=== PATIENT | male | born 1955 | race Caucasian/White ===

== ENCOUNTER 2024-03-03 20:20 | Emergency (ER) | payer MEDICARE, OTHER, SELFPAY ==
[2024-03-03 20:20] VITALS: BP 160/106; PULSE 88; RESP 18; TEMP 36.5; O2SAT 98; BMI 33.5
--- NOTE | 2024-03-03 20:37 | CT_ITS ---
INDICATION: LEFT SIDED ABD PAIN EXAMINATION: CT ABDOMEN AND PELVIS WITHOUT CONTRAST - CT Abdomen And Pelvis W/O Contrast Injection TECHNIQUE: Helically acquired images were obtained of the abdomen and pelvis without oral or IV contrast. A radiation dose optimization technique was used for this scan. IV Contrast dosage and agent: None. Oral contrast: None. RADIATION DOSAGE (If Supplied By Facility): CTDIvol = ( 17.98 ) mGy, DLP = ( 1309.86 ) mGycm COMPARISON: Prior study dated: 03/08/2016 FINDINGS: LOWER CHEST: There is a 0.4 cm right middle lobe pulmonary nodule in series 2 image 6. This is similar to the 2016 study, suggesting benign etiology. No specific follow-up recommended. No consolidation. No cardiomegaly or pericardial effusion. LIVER: The liver is normal in size, shape, and attenuation. No focal mass. GALLBLADDER AND BILIARY TREE: Gallbladder not seen. No intra- or extrahepatic biliary ductal dilation. PANCREAS: No focal cystic or solid mass. SPLEEN: Normal size without focal cystic or solid mass. ADRENAL GLANDS: No nodules. KIDNEYS AND URETERS: Normal size and position. Postsurgical changes along the peripheral aspect of the right kidney. There is mild left hydroureteronephrosis with perinephric and periureteral fat stranding. There is a 0.2 cm calculus in the mid ureter at the level of L5. Additional 0.4 cm left lower pole renal calculus which is 11.5 cm from the posterior axillary line. . PERITONEUM: No ascites or free air. No other fluid collection. BOWEL: The stomach is unremarkable. Normal caliber small bowel. No obstruction. No colonic wall thickening or inflammatory changes. Diffuse colonic diverticulosis, greatest at the sigmoid colon. No diverticulitis. No evidence of acute appendicitis. LYMPH NODES: No enlarged mesenteric or retroperitoneal lymph nodes. VESSELS: Aorta is non-dilated. Mild atherosclerotic calcification. URINARY BLADDER: Unremarkable. REPRODUCTIVE ORGANS: No pelvic masses. ABDOMINAL WALL: Prominent fat-containing right inguinal hernia. BONES: No acute or suspicious osseous abnormality. Degenerative change at L5-S1 with vacuum disc phenomenon. CT/Abdomen/Pelvis without Cont IMPRESSION: Mild left hydroureteronephrosis with a midureteral 0.2 cm calculus. Additional nonobstructing left lower pole renal calculus. Electronically Signed: Wes Raya MD at 21:52 EDT ,
--- NOTE | 2024-03-03 20:38 | EDS_ITS ---
HPI <SHAHEED Thakkar - Last Filed: 03/03/24 22:28> History of Present Illness Chief Complaint: Complaint Narrative Narrative: Patient is a 68-year-old male with history of diabetes, renal cell carcinoma who presents to the emergency department with left-sided abdominal pain, left-sided scrota pain. Looking at the patient's surgical note, patient did see Dr. Foy for an inguinal hernia. Patient did have surgery for a hydrocele to the right testicle however it turned out to be a more of a hernia. Patient's incision site was open, looking infected and he is now on antibiotics. Patient states today roughly around 6 PM he had severe pain to his left flank, left abdomen, it was sharp, he became diaphoretic, then it went away. He then had a second episode of this and this is why he is in the emergency department. Denies any fever or chills. PFS <SHAHEED Thakkar - Last Filed: 03/03/24 22:28> [facility] Medical History unable to obtain Home Medications ?Medication ?Instructions ?Recorded ?Last Taken ?Type aspirin 81 mg chewable tablet 81 mg PO DAILY@0800 01/22/16 Unknown History ciprofloxacin HCl 500 mg tablet 500 mg PO BID ##20 03/08/16 Unknown Rx esomeprazole magnesium 40 mg 40 mg PO QDAY 03/01/24 Unknown History capsule,delayed release gabapentin 300 mg capsule 300 mg PO TID 03/01/24 Unknown History glipizide 10 mg tablet, extended 10 mg PO QDAY 03/01/24 Unknown History release 24 hr insulin glargine 100 unit/mL (3 unit subcut 03/01/24 Unknown History mL) subcutaneous pen (Basaglar KwikPen U-100 Insulin) lisinopril 10 mg tablet 10 mg PO QDAY 03/01/24 Unknown History phentermine 37.5 mg tablet 37.5 mg PO QDAY 03/01/24 Unknown History zolpidem 10 mg tablet 10 mg PO QHS PRN 03/01/24 Unknown History azithromycin 250 mg tablet 250 mg PO DAILY #4 TABLETS 03/03/24 Unknown Rx oxycodone-acetaminophen 5 mg-325 1 tab PO Q8H PRN pain 5 days #15 03/03/24 Unknown Rx mg tablet (Percocet) tabs Allergy/AdvReac Type Severity Reaction Status Date / Time No Known Allergies Allergy Verified 03/03/24 20:26 Social History Smoking Status: Never smoker ROS <SHAHEED Thakkar - Last Filed: 03/03/24 22:28> ROS ED ROS Narrative Constitutional: Negative for fever, chills, weight loss, weakness Eyes: Negative for vision loss, vision change, double vision ENT: Negative for any sore throat, ear pain, congestion Cardiovascular: Negative for any chest pain, tightness, palpitations Respiratory: Negative for any cough, sputum production, hemoptysis, dyspnea, dyspnea on exertion, orthopnea Gastrointestinal: Negative for any vomiting, diarrhea, constipation, blood in stool, blood in vomit. Positive for left-sided abdominal pain : Negative for any urinary frequency, dysuria, retention, blood in urine. Positive for testicular, scrotal pain Muscle skeletal: Negative for any neck pain, back pain Neurological: Negative for any headache, syncope, dizziness Skin: Negative for any rashes, itching, abrasions, lacerations Psychiatric: Negative for any depression, anxiety, stress, suicidal ideation, homicidal ideation Hematologic: Negative for any excessive bruising, easy bleeding EXAM <SHAHEED Thakkar - Last Filed: 03/03/24 22:28> Physical Exam Narrative Exam Narrative: Vital signs reviewed. Patient appears uncomfortable on my initial examination HEET: Head normocephalic atraumatic, TMs clear bilaterally. Posterior pharynx is clear, moist mucous membranes. Nares clear bilaterally. Neck: Supple with no lymphadenopathy or tenderness. No signs of meningismus. Cardiac: Regular rate and rhythm no murmurs gallops or rubs, equal peripheral pulses bilaterally. Respiratory: Lungs clear to auscultation bilaterally. No chest tenderness. Abdomen: Soft. No abdominal bruit or pulsatile masses. No hepatosplenomegaly. Patient does have significant tenderness to the left flank, left lower abdomen. Extremities: No peripheral edema, no signs of gross trauma or deformity. Active full range of motion of all extremities. Neuro: Cranial nerves II through XII intact, no focal neurological deficits. Skin: Clean dry and intact with no rash, purpura, petechiae, vesicles or pustules. Backs/flank: No CVA tenderness, no midline spinal tenderness, no deformity. Psych: Normal mood and affect. No SI, HI or acute psychosis. Testicular exam: Patient does have a incision site that is midline that is open, there is no drainage, there is some granulation tissue. The entire scrotum is edematous, patient does have some tenderness to the left side, there is no significant cellulitis. Const Vital Signs: 03/03/24 20:20 03/03/24 22:30 Temperature 97.7 F L Temperature Source Oral Pulse Rate 88 Respiratory Rate 18 Blood Pressure 160/106 H 182/92 H Blood Pressure Mean 124 122 Pulse Ox 98 Oxygen Delivery Method Room Air <Dr. Terry Prieto MD - Last Filed: 03/03/24 23:07> Physical Exam Const Vital Signs: 03/03/24 20:20 03/03/24 22:30 Temperature 97.7 F L Temperature Source Oral Pulse Rate 88 Respiratory Rate 18 Blood Pressure 160/106 H 182/92 H Blood Pressure Mean 124 122 Pulse Ox 98 Oxygen Delivery Method Room Air MDM <SHAHEED Thakkar - Last Filed: 03/03/24 22:28> [facility] Lab Data Labs: Laboratory Results - last 24 hr 03/03/24 03/03/24 21:58 22:00 WBC 12.2 H RBC 5.94 Hgb 17.7 H Hct 53.6 MCV 90.2 MCH 29.8 MCHC 33.0 RDW Std Deviation 45.2 H RDW Coeff of Elie 13.5 Plt Count 335 MPV 8.3 Immature Gran % (Auto) 0.600 Neut % (Auto) 75.4 H Lymph % (Auto) 15.3 L Conway % (Auto) 6.7 Eos % (Auto) 1.3 Baso % (Auto) 0.7 Absolute Neuts (auto) 9.2 H Absolute Lymphs (auto) 1.87 Nucleated RBC % 0 Sodium 136 Potassium 3.9 Chloride 106 Carbon Dioxide 24.0 Anion Gap 6 BUN 30 H Creatinine 1.25 Estim Creat Clear Calc 72.06 Est GFR (MDRD) Af Amer 74 Est GFR (MDRD) Non-Af 61 BUN/Creatinine Ratio 24.0 H Glucose 141 H Calcium 9.3 Total Bilirubin 0.60 AST 18 ALT 28 Alkaline Phosphatase 93 Total Protein 7.4 Albumin 3.9 Globulin 3.5 Albumin/Globulin Ratio 1.1 Lipase 37 Urine Color Yellow Urine Clarity Clear Urine pH 5.0 Ur Specific Schwertner 1.015 Urine Protein 30 H Urine Glucose (UA) Normal Urine Ketones 5 H Urine Occult Blood 250 H Urine Nitrite Negative Urine Bilirubin Negative Urine Urobilinogen 1 H Ur Leukocyte Esterase Negative Urine RBC 25-50 SEEN Urine WBC 0-5 SEEN Ur Squamous Epith Cells 0-5 SEEN Urine Bacteria RARE Urine Mucus 0 SEEN Radiography Diagnostic Testing: Clinical Impression(s) from Imaging Studies Abdomen/Pelvis CT 03/03/24 20:37 IMPRESSION: Mild left hydroureteronephrosis with a midureteral 0.2 cm calculus. Additional nonobstructing left lower pole renal calculus. Electronically Signed: Wes Raya MD at 21:52 EDT , Treatment and Re-Evaluation :: Differential diagnosis includes however is not limited to: Kidney stone, infected kidney stone, UTI, diverticulitis, bowel obstruction, incarcerated hernia, Carmita's gangrene Patient appears to be in mild distress secondary to pain to the left side of his abdomen, left testicular area. Patient's vital signs are stable, patient appears nontoxic appearing. Patient will receive basic laboratory values, IV fluids, Zofran and morphine. Patient will receive a CT scan of the abdomen pelvis without contrast. This will help determine whether this is an obstructing uropathy, if there is any gas, diverticulitis. Patient will be reevaluated. All radiologic examinations were read, reviewed by the emergency department attending. From these reads, a plan of care will be put in place. Patient CT scan shows a mild left hydro utero nephrosis with a mid ureteral 0.2 cm calculus. Additional nonobstructing left lower pole renal calculus as well. Patient CBC showed a slight leukocytosis with a red blood count 12.2. Patient was given IV fluids, IV Zofran, IV morphine. Patient's urinalysis was negative for any infection. <Dr. Terry Prieto MD - Last Filed: 03/03/24 23:07> [facility] Narrative Medical decision making narrative: I have personally performed a face to face assessment of the patient and have reviewed the CM Note. I performed a substantive portion of the visit including all aspects of the following. My samson findings include: History is history of abrupt left flank pain radiating to his groin. He had recent surgery for hydrocele and had a subsequent scrotal infection. He was placed on antibiotics by Dr. Briscoe. He denies fever or chills. He does report urgency. He has no other complaints Exam is remarkable for patient being in discomfort. He is holding his left side. exam reveals scrotal dehiscence of his wound with slight erythema. There is no fluctuance. There is no lymphangitis. There is no inguinal lymphadenopathy. He has no testicular tenderness. Medical Decision Making IV was established. He was treated with IV medication for his pain. Appropriate blood work was obtained as well as CT. Other additions or changes: White count is slightly elevated 12.2 thousand with mild shift. There is no bandemia. Patient's basic metabolic panel was elevated BUN of 30 with a BUN to creatinine ratio of 24:1. Glucose is slightly evaded 141 with a normal CO2 anion gap. UA reveals protein, ketones occult blood. Negative nitrites and leukoesterase. Micro reveals 25-50 RBCs with 0-5 WBCs and rare bacteria. Culture was sent. He is given 1 dose of Rocephin. He is present on antibiotic which will also cover urologic pathogens. Plan is to discharge to home with appropriate pain medicine and instructions. Lab Data Labs: Laboratory Results - last 24 hr 03/03/24 03/03/24 21:58 22:00 WBC 12.2 H RBC 5.94 Hgb 17.7 H Hct 53.6 MCV 90.2 MCH 29.8 MCHC 33.0 RDW Std Deviation 45.2 H RDW Coeff of Elie 13.5 Plt Count 335 MPV 8.3 Immature Gran % (Auto) 0.600 Neut % (Auto) 75.4 H Lymph % (Auto) 15.3 L Conway % (Auto) 6.7 Eos % (Auto) 1.3 Baso % (Auto) 0.7 Absolute Neuts (auto) 9.2 H Absolute Lymphs (auto) 1.87 Nucleated RBC % 0 Sodium 136 Potassium 3.9 Chloride 106 Carbon Dioxide 24.0 Anion Gap 6 BUN 30 H Creatinine 1.25 Estim Creat Clear Calc 72.06 Est GFR (MDRD) Af Amer 74 Est GFR (MDRD) Non-Af 61 BUN/Creatinine Ratio 24.0 H Glucose 141 H Calcium 9.3 Total Bilirubin 0.60 AST 18 ALT 28 Alkaline Phosphatase 93 Total Protein 7.4 Albumin 3.9 Globulin 3.5 Albumin/Globulin Ratio 1.1 Lipase 37 Urine Color Yellow Urine Clarity Clear Urine pH 5.0 Ur Specific Schwertner 1.015 Urine Protein 30 H Urine Glucose (UA) Normal Urine Ketones 5 H Urine Occult Blood 250 H Urine Nitrite Negative Urine Bilirubin Negative Urine Urobilinogen 1 H Ur Leukocyte Esterase Negative Urine RBC 25-50 SEEN Urine WBC 0-5 SEEN Ur Squamous Epith Cells 0-5 SEEN Urine Bacteria RARE Urine Mucus 0 SEEN Radiography Diagnostic Testing: Clinical Impression(s) from Imaging Studies Abdomen/Pelvis CT 03/03/24 20:37 IMPRESSION: Mild left hydroureteronephrosis with a midureteral 0.2 cm calculus. Additional nonobstructing left lower pole renal calculus. Electronically Signed: Wes Raya MD at 21:52 EDT Reading Location ID and State: [address] [place] [address] Tel , Service support , Discharge Plan Triage Chief Complaint: Complaint ED Midlevel Provider: Collin Collins ED Provider: Terry Prieto Dx/Rx/DC Orders Clinical Impression: Hydronephrosis with urinary obstruction due to ureteral calculus, Hematuria, Postoperative wound infection Instructions: ED Kidney Stone with Pain Prescriptions: New azithromycin 250 mg tablet 250 mg PO DAILY Qty: 4 0RF oxycodone-acetaminophen [Percocet] 5-325 mg tablet 1 tab PO Q8H PRN (Reason: pain) 5 Days Qty: 15 0RF No Action lisinopril 10 mg tablet 10 mg PO QDAY phentermine 37.5 mg tablet 37.5 mg PO QDAY gabapentin 300 mg capsule 300 mg PO TID zolpidem 10 mg tablet 10 mg PO QHS PRN glipizide 10 mg tablet extended release 24hr 10 mg PO QDAY insulin glargine [Basaglar KwikPen U-100 Insulin] 100 unit/mL (3 mL) insulin pen subcut esomeprazole magnesium 40 mg capsule,delayed release(DR/EC) 40 mg PO QDAY aspirin 81 MG tablet,chewable 81 mg PO DAILY@0800 Patient Comments: Blood thinner for heart health ciprofloxacin HCl 500 MG tablet 500 mg PO BID Qty: 20 0RF Primary Care Provider: Jose Boyle Referrals: Chuck Briscoe MD [Med Staff - Active Staff] - 3-5 Days Jose Boyle MD [Primary Care Provider] - Print Language: Guyanese Disposition Disposition: Home, Self Care
[2024-03-03] MEDS: Morphine 4 MG/ML Syringe IV (22:05)
[2024-03-03] MEDS: Ondansetron 4 MG/2 ML Vial IV (22:05)
[2024-03-03] MEDS: 0.9% Normal Saline (1000mL) 1,000 ML 999 ML IV (22:05)
[2024-03-03 22:23] LABS: Mucous, Urine 0 SEEN /hpf (<or=2+)
[2024-03-03 22:24] LABS: Absolute Lymphocyte Count 1.87 X10^3/uL (0.83-4.51); Absolute Neutrophil Count 9.2 X10^3/uL (2.0-7.7); Basophil# 0.08 X10^3/uL; Basophil% 0.7 % (0-1); Eosinophil# 0.16 X10^3/uL; Eosinophils% 1.3 % (0-5); Hematocrit 53.6 % (40-54); Hemoglobin 17.7 g/dL (13.0-16.5); Lymphocyte # 1.87 X10^3/ul (0.83-4.51); Lymphocyte % 15.3 % (19-41); Mean Corpuscular Hgb 29.8 pg (27.0-32.0); Mean Corpuscular Volume 90.2 fL (80-94); Mean Platelet Vol. 8.3 fl (6.2-12.0); Monocyte# 0.82 X10^3/uL; Monocyte% 6.7 % (0-10); NRBC Flagged by Analyzer 0 % (0-5); Neutrophil # 9.19 X10^3/uL (2.7-7.7); Neutrophil % 75.4 % (47-70); Platelet Count 335 K/mm3 (150-450); RBC Distribution Width CV 13.5 % (11.6-14.6); RBC Distribution Width SD 45.2 fl (35.1-43.9); Red Blood Count 5.94 M/mm3 (4.6-6.2); White Blood Count 12.2 K/mm3 (4.4-11.0)
[2024-03-03 22:24] LABS: Color, Urine Yellow (Yellow); Glucose, Dipstick Normal (Normal); Ketone-Dipstick 5 mg/dl (Negative); Leukocyte Esterase-Dipstick Negative /ul (Negative); Nitrite-Dipstick Negative (Negative); Occult Blood-Urine 250 /ul (Negative); Protein-Dipstick 30 mg/dl (Negative); Specific Gravity, Urine 1.015 (1.002-1.030); Urine Bilirubin Dipstick Negative (Negative); Urine Clarity Clear (Clear); Urine Urobilinogen 1 mg/dl (Normal)
[2024-03-03 22:30] VITALS: BP 182/92
[2024-03-03 22:33] LABS: Bacteria RARE /hpf (None Seen); Red Blood Cells-Urine 25-50 SEEN /hpf (0-5); Squamous Epithelial Cells - UA 0-5 SEEN /hpf (0-5); White Blood Cells 0-5 SEEN /hpf (0-5)
[2024-03-03 22:49] LABS: ALB/GLOB Ratio 1.1 RATIO (0.9-2.4); AST(SGOT) 18 U/L (15-37); Alanine Aminotransfer ALT/SGPT 28 U/L (16-61); Albumin, Serum 3.9 g/dL (3.2-5.0); Alkaline Phosphatase 93 U/L (45-117); Anion Gap 6 (5-15); BUN 30 mg/dL (7-18); Calcium,Total 9.3 mg/dL (8.5-10.1); Chloride 106 mmol/L (98-107); Creatinine, Serum 1.25 mg/dL (0.70-1.30); EST Glomerular Filtration Rate 61 mL/min (>60); Est Glom Filt Rate - Afr Amer 74 mL/min (>60); Estimated Creatinine Clearance 72.06 ml/min; Globulin 3.5 g/dL (2.2-4.2); Glucose 141 mg/dL (74-106); Lipase 37 U/L (13-75); Potassium 3.9 mmol/L (3.5-5.1); Protein, Total 7.4 g/dL (6.4-8.2); Sodium Level 136 mmol/L (136-145)
[2024-03-03] MEDS: Ceftriaxone 1 GM/50 ML BAG IV (23:07)
[2024-03-03 23:35] VITALS: BP 187/102; PULSE 69; RESP 18; TEMP 36.8; O2SAT 98
== END 2024-03-03 23:36 | disposition home or self-care (01) ==
PROVIDERS: Nurse Practitioner; Emergency Provider Emergency Medicine; PCP Family Medicine; Visit Provider Emergency Medicine
DX: N13.2 Hydronephrosis with renal and ureteral calculous obstruction (principal); C64.9 Malignant neoplasm of unspecified kidney, except renal pelvis; T81.49XA Infection following a procedure, other surgical site, initial encounter; R31.9 Hematuria, unspecified; Z87.19 Personal history of other diseases of the digestive system; Z98.890 Other specified postprocedural states; T81.31XA Disruption of external operation (surgical) wound, not elsewhere classified, initial encounter
CPT/HCPCS: 74176; 80053; 81001; 83690; 85025; 87086; 96361; 96365; 96375; 99283; J7030; A4216; J2405

== ENCOUNTER 2024-04-27 06:01 | Day surgery (SDC) | payer MEDICARE, OTHER, SELFPAY ==
--- NOTE | 2024-04-19 08:05 | EKG12_ITS ---
Test Reason : PREOP Blood Pressure : / mmHG Vent. Rate : 055 BPM Atrial Rate : 055 BPM P-R Int : 170 ms QRS Dur : 116 ms QT Int : 424 ms P-R-T Axes : 019 -40 -16 degrees QTc Int : 405 ms Sinus bradycardia with occasional Premature ventricular complexes Left axis deviation Abnormal ECG Confirmed by Yamil Castle ([id number]), film or videotape editor ROLAND DANIELLE ([id number]) on 04/19/2024 9:54:41 AM Referred By: Adal Foy Confirmed By:Yamil Castle
[2024-04-19 09:07] LABS: Hematocrit 51.4 % (40-54); Hemoglobin 16.8 g/dL (13.0-16.5); Mean Corp Hgb Conc 32.7 g/dL (32-36); Mean Corpuscular Hgb 30.2 pg (27.0-32.0); Mean Corpuscular Volume 92.3 fL (80-94); Mean Platelet Vol. 8.5 fl (6.2-12.0); Platelet Count 306 K/mm3 (150-450); RBC Distribution Width CV 13.5 % (11.6-14.6); Red Blood Count 5.57 M/mm3 (4.6-6.2); White Blood Count 9.2 K/mm3 (4.4-11.0)
[2024-04-19 09:28] LABS: Anion Gap 5 (5-15); BUN 20 mg/dL (7-18); BUN/Creat Ratio 17.2 RATIO (10-20); Calcium,Total 9.1 mg/dL (8.5-10.1); Chloride 107 mmol/L (98-107); Creatinine, Serum 1.16 mg/dL (0.70-1.30); EST Glomerular Filtration Rate 66 mL/min (>60); Est Glom Filt Rate - Afr Amer 80 mL/min (>60); Glucose 217 mg/dL (74-106); Potassium 3.5 mmol/L (3.5-5.1); Sodium Level 139 mmol/L (136-145)
[2024-04-19 10:13] LABS: Hemoglobin A1c 6.4 % (3.8-5.6)
[2024-04-27] VITALS (12 sets, daily range): BP systolic 113–152; BP diastolic 74–90; PULSE 61–97; RESP 16–20; TEMP 36.3–36.9; O2SAT 88–98; BMI 33.6
[2024-04-27 06:44] LABS: Bedside Glucose 143 mg/dL (74-106)
[2024-04-27] MEDS: Lactated Ringers 1,000 ML 15 ML IV (06:44)
--- NOTE | 2024-04-27 06:59 | HP.PCM_ITS ---
History and Physical Date of Admission: 04/27/24 Intake Vital Signs 03/01/2409:47 03/03/2420:20 04/14/2412:50 Height 6 ft 6 ft 6 ft Weight: 246 lb BMI 33.3 BP 149/92 H Blood Pressure Location Rt brachial Position Sitting Respiration 18 Pulse 72 Pulse Source Monitor Temp 97.5 F L Temp Source Temporal Pulse Oximetry (%) 97 Oxygen Delivery Method room air Intake Visit Reasons: CHECK GROIN Chief Complaint: check groin Is patient in pain?: No Allergies No Known Allergies Allergy (Verified 04/14/24 12:51) Medications ?Medication ?Instructions ?Recorded ?Confirmed ?Type aspirin 81 mg chewable tablet 81 mg PO DAILY@0800 01/22/16 04/14/24 History ciprofloxacin HCl 500 mg tablet 500 mg PO BID #20 TABLETS 03/08/16 04/14/24 Rx esomeprazole magnesium 40 mg 40 mg PO QDAY 03/01/24 04/14/24 History capsule,delayed release gabapentin 300 mg capsule 300 mg PO TID 03/01/24 04/14/24 History glipizide 10 mg tablet, extended 10 mg PO QDAY 03/01/24 04/14/24 History release 24 hr insulin glargine 100 unit/mL (3 unit subcut 03/01/24 04/14/24 History mL) subcutaneous pen (Basaglar KwikPen U-100 Insulin) lisinopril 10 mg tablet 10 mg PO QDAY 03/01/24 04/14/24 History phentermine 37.5 mg tablet 37.5 mg PO QDAY 03/01/24 04/14/24 History zolpidem 10 mg tablet 10 mg PO QHS PRN 03/01/24 04/14/24 History azithromycin 250 mg tablet 250 mg PO DAILY #4 TABLETS 03/03/24 04/14/24 Rx Have you fallen in the past year?: No PFSH Social History (Updated 04/14/24 @ 12:50 by Laura Yao LPN) Smoking Status: Never smoker alcohol intake: never substance use type: does not use HPI HPI HPI: Patient is a 68-year-old male here with right inguinal hernia.He was seen about a month ago and had an open scrotal wound. This is healing nicely with no signs of infection.Patient is still having right inguinal hernia and would like this repaired. ROS General General: No weight change, appetite, fatigue, colon cancer, breast cancer or weakness HEENT HEENT: No difficulty swallowing, eye injury, eye surgery, swollen glands or hoarseness Endo Endocrine: Yes diabetes mellitus; No thyroid disease, thyroid cancer, Hair loss, heat intolerance or cold intolerance Skin Skin: No rash or changing moles Musc Musculoskeletal: Yes back problems and arthritis; No rheumatoid arthritis, gout or joint pain Cardio Cardiovascular: Yes high blood pressure; No murmur, pacemaker, heart disease, atrial fibrillation, heart attack, heart stent, palpitations, shortness of breat with exertion or chest pain Psych Psychiatric: Yes anxiety; No depression or hearing voices Resp Respiratory: No shortness of breath, Yes sleep apnea, No cough, No COPD, No asthma, No emphysema and No wheezing Gastro Gastrointestinal: No abdominal pain, No nausea or vomiting, No diarrhea, No constipation, No blood in stool, Yes acid reflux, No hemorrhoids, No ulcers, No gallbladder problem and No black,tarry stools Husam Hematologic: Yes blood thinners, No blood disorders, No bleeding, No anemia and No blood clots Additional Details: 81mg aspirin Neuro Neurologic: Yes as per HPI (Stroke in September of 2023) and No weakness Exam Const General: cooperative Orientation: alert and oriented x3 HENMT Head: normal to inspection Neck Neck: normal visual inspection and full ROM Chest Chest palpation & inspection: normal inspection of the chest Resp Effort & Inspection: normal respiratory effort Auscultation: clear to auscultation bilaterally Cardio Rate: regular rate Rhythm: regular rhythm GI Inspection: non-distended Palpation: soft and nontender Skin General: no rashes or lesions noted Neuro General: patient alert and patient oriented x3 Extrem General: full ROM Psych Appearance: grossly normal Mental Status: mental status grossly normal Assessment and Plan Assessment and Plan (1) Right inguinal hernia: Status: Acute Plan: Patient has a large right inguinal hernia which is partially reducible. The incision on his scrotum is almost fully healed. I recommend scheduling him for robotic assisted laparoscopic right inguinal hernia repair with mesh. I also discussed repairing the contralateral side if there is a hernia present and he would like it done. I discussed the surgery in detail with the patient and I discussed the risks including but not limited to bleeding, infection, injury other organs such as the bowel, bladder, blood supply to the testicle or testicle itself. Patient understands the risks and is willing to proceed.Patient will hold aspirin 5 days prior to the procedure. Adal Foy MD Pager: [facility] [place] [facility] [address] [place] [address] [address] [place] [address] Office: I have examined the patient and the H&P has been reviewed. There are no clinical changes since date of exam
--- NOTE | 2024-04-27 07:11 | PRE.ANES_ITS ---
ASA Classification* ASA Classification ASA Classification: 3 Assessment & Plan Anesthesia* Anesthesia Assessment Anesthesia Assessment: Discussed sedation and/or anesthesia options, risks, benefits, and alternatives with patient/parents/legal guardian/POA. Questions invited. The patient/parents/legal guardian/POA seems to understand and agrees to proceed with anesthesia plan. Reviewed the physical assessment, medical history, allergy history and patient home medications list prior to surgery/procedure/anesthetic and documented any changes. Performed airway and anesthesia risk assessments. Anesthesia Type Anesthesia Type: General (see written pre anesthesia record for full assessment) Anesthesia Focused Assessment* Temperature: 98.4 F Pulse Rate: 61 Blood Pressure: 152/85 Respiratory Rate: 18 Pulse Ox: 97 Airway Assessment Mouth opens: >3 cm Mallampati Score: II Focused Labs Anesthesia Preop lab: CBC WBC 9.2 K/mm3 (4.4-11.0) 04/19/24 08:18 RBC 5.57 M/mm3 (4.6-6.2) 04/19/24 08:18 Hgb 16.8 g/dL (13.0-16.5) H 04/19/24 08:18 Hct 51.4 % (40-54) 04/19/24 08:18 Plt Count 306 K/mm3 (150-450) 04/19/24 08:18 CHEMISTRY Potassium 3.5 mmol/L (3.5-5.1) 04/19/24 08:18 Sodium 139 mmol/L (136-145) 04/19/24 08:18 Magnesium 2.0 mg/dL (1.8-2.4) 01/22/16 17:08 BUN 20 mg/dL (7-18) H 04/19/24 08:18 Creatinine 1.16 mg/dL (0.70-1.30) 04/19/24 08:18 Glucose 217 mg/dL (74-106) H 04/19/24 08:18 POC Glucose 143 mg/dL (74-106) H 04/27/24 06:22 TSH 0.78 uIU/mL (0.358-3.74) 01/22/16 12:55 COAG PT 14.7 SECONDS (11.7-14.9) 01/23/16 05:45 Pre-Assessment Diagnosis/Proposed Procedure Planned Operative Procedure(s): LAP ROBOTIC INGUINAL HERNIA REPAIR RIGHT POSS BILAT Anesthesia History 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 When Was Last Pacemaker Check QUESTION #4 FULL TEXT: You/Your Family Experience fever (hyperthermia) with Anesthesia Last Oral Intake Last Oral intake: Last Oral Intake NPO since 22:00 04/27/24 06:34 Meds taken in AM with sips of Yes 04/27/24 06:34 water? Meds patient instructed to take am of surgery PONV PONV - senior data mining analyst: PONV - senior data mining analyst Female No 04/17/24 11:16 HX of Motion Sickness No 04/17/24 11:16 HX of N/V After Surgery No 04/17/24 11:16 Non-Smoker Yes 04/17/24 11:16 Duration of Surgery greater Yes 04/17/24 11:16 than 60 minutes Number of Risk Factors 2 04/17/24 11:16 PONV Score Moderate Risk 04/17/24 11:16 Height & Weight Height & Weight: Anesthesia: Height & Weight Height 6 ft 04/27/24 06:34 Weight: 112.491 kg 04/27/24 06:34 Body Mass Index (BMI) 33.6 04/27/24 06:34 Respiratory Assessment Respiratory Assessment - senior data mining analyst: Respiratory Tract Infection Hx - senior data mining analyst Hx Respiratory Tract Infection No 04/17/24 11:16 STOP Sleep Apnea STOP Sleep Apnea - senior data mining analyst: STOP Sleep Apnea - senior data mining analyst Hx Hypertension Yes: CONTROLLED WITH MED 04/17/24 11:16 Hx Sleep Apnea Yes 04/17/24 11:16 CPAP No 04/17/24 11:16 BIPAP Yes 04/17/24 11:16 Do you snore loudly (louder than talking or can be heard Do you often feel tired/ fatigued/ sleepy during daytime? Has anyone observed you stop breathing during sleep? STOP Results Positive 04/17/24 11:16 QUESTION #5 FULL TEXT : Do you snore loudly (louder than talking or can be heard through closed doors)? Tobacco Use History Tobacco Use History - senior data mining analyst: Tobacco Use History - senior data mining analyst Tobacco Use Smoking Status Never smoker 04/17/24 11:16 Hx Tobacco Use No 04/17/24 11:16 Years Smoking Packs Smoked per Day Smoking Cessation Date was within the last 15 years Hx Smoking Cessation Date Hx Smoking Cessation Counseling Hematologic Medial History Hematologic Hx - senior data mining analyst: Hematologic Medical Hx - rn faculty Hx of Blood Transfusion No 04/17/24 11:16 Hx of Transfusion in last 3 No 04/17/24 11:16 Months Date of Last Transfusion (if within last 3 months) Ever experience any problems No 04/17/24 11:16 with transfusion(s)? Specify any problems Hx of Preganancy in last 3 N/A 04/17/24 11:16 Months Nurse Filling Out Transfusion DSCHRIBER 04/17/24 11:16 & Questions: Date: 04/17/24 04/17/24 11:16 Time: 11:18 04/17/24 11:16 Patient unable to answer at this time (ie. confused, unrespo /Reproduction History /Reproductive History - senior data mining analyst: /Reproductive Hx- senior data mining analyst Hx Now No 04/17/24 11:16 Gestational Age (in weeks): EDC: Hx Hx Para Hx Section SAB No 04/17/24 11:16 Active Medications Active Medications: Current Medications Generic Name Dose Route Start Last Admin Trade Name Freq PRN Reason Stop Dose Admin Cefazolin Sodium 2 gm/ Sodium 110 mls @ 150 mls/hr 04/27/24 07:30 Chloride IV 04/27/24 08:13 PREOP ONE Lactated Ringer's 1,000 mls @ 15 mls/hr 04/27/24 06:45 04/27/24 06:44 IV 15 mls/hr .Q48H ALESSANDRA Administration PFSH Medical History Wears glasses Wears dentures Cancer Anxiety Alcohol use Insulin dependent diabetes mellitus Arthritis Restless legs Back pain Balance problem Dietary restriction History of hiatal hernia History of diverticulitis Gastric reflux Former smoker BiPAP (biphasic positive airway pressure) dependence Neuropathy Stroke/cerebrovascular accident Cardiology follow-up encounter History of echocardiogram History of stress test Hypertension Hx of malignant neoplasm of kidney Home Medications ?Medication ?Instructions ?Recorded ?Last Taken ?Type aspirin 81 mg chewable tablet 81 mg PO DAILY@0800 06/16 04/22/24 History esomeprazole magnesium 40 mg 40 mg PO QDAY 03/01/24 04/27/24 05:00 History capsule,delayed release gabapentin 300 mg capsule 300 mg PO TID 03/01/24 04/26/24 20:00 History glipizide 10 mg tablet, extended 10 mg PO QDAY 03/01/24 04/19/24 History release 24 hr insulin glargine 100 unit/mL (3 16 unit subcut QHS 03/01/24 04/26/24 19:00 History mL) subcutaneous pen (Dialsaglar KwikPen U-100 Insulin) lisinopril 10 mg tablet 10 mg PO QDAY 03/01/24 04/27/24 05:00 History phentermine 37.5 mg tablet 37.5 mg PO QDAY 03/01/24 04/13/24 History zolpidem 10 mg tablet 10 mg PO QHS PRN sleep 03/01/24 04/26/24 20:00 History ascorbic acid (vitamin C) 500 mg 500 mg PO DAILY 04/17/24 04/26/24 07:00 History tablet,extended release (C Complex) cholecalciferol (vitamin D3) 25 25 mcg PO DAILY 04/17/24 04/26/24 07:00 History mcg (1,000 unit) tablet (Vitamin D3) mecobalamin (vitamin B12) 1,000 1,000 mcg PO DAILY 04/17/24 04/19/24 History mcg chewable tablet Allergy/AdvReac Type Severity Reaction Status Date / Time No Known Allergies Allergy Verified 04/27/24 06:26 Surgical History History of esophagogastroduodenoscopy (EGD) Hx of colonoscopy Hx of total knee arthroplasty Hx of total knee arthroplasty Hx laparoscopic cholecystectomy Social History Smoking Status: Never smoker alcohol intake: never substance use type: does not use Review of Systems (Anesthesia) ROS Narrative System reviewed and no additional complaints, except as documented.
[2024-04-27] MEDS: Cefazolin 2 GM in 0.9% Normal Saline (100mL Bag) 100 ML IV (07:35)
[2024-04-27] MEDS: Bupivacaine Mpf 0.5% 30 ML VIAL (09:00)
--- NOTE | 2024-04-27 09:16 | PCM.OPRPT ---
Report of Operation Date of Procedure: 04/27/24 Pre-Operative Diagnosis: Right inguinal hernia Post-Operative Diagnosis: Right inguinal hernia Surgery/Procedure Performed:: Robotic assisted laparoscopic right inguinal hernia repair with mesh Type of Anesthesia: General/Regional Specimen's removed: None Estimated Blood Loss (mL): 10 Description of Procedure: Patient was brought back to the operating room and general anesthesia was induced. The abdomen was prepped and draped in usual sterile fashion. Superior to the umbilicus and a small incision was made and the fascia was grasped and elevated. Fascia was incised and a port was placed into the abdomen. The abdomen was insufflated to 15 mmHg. There was dense scar tissue from his prior surgeries but that was all in the superior abdomen. Under direct visualization an 8 mm port was placed in the right lateral abdomen as well as left lateral abdomen. The robot was then docked. Using electrocautery scissors the right lower quadrant peritoneum was incised. Dissection was carried inferiorly. The hernia sac was reduced and it was very difficult. The patient also had a large amount of retroperitoneal fat extending into the hernia. This was also reduced. After everything was reduced and the hernia was identified and carefully dissected free a piece of ProGrip mesh was placed over the hernia defect and unfolded. Next the peritoneum was reapproximated using a running 3 oh V-Loc suture. There was an opening in the peritoneum from dissection. This was closed with a separate V-Loc suture. The mesh was completely covered by peritoneum at the end of the procedure. The ports were removed and the robot was undocked and the abdomen was allowed to desufflate. Next the incisions were injected with local anesthetic. Interrupted 4-0 Monocryl sutures were used to close the skin. Steri-Strips and Dermabond was applied. Patient tolerated the procedure well and was brought to PACU in stable condition. The scrotum contain both testicles at the end of the case. Grafts/Implants Used: ProGrip mesh in the right groin Admit VTE Documentation VTE Mechan Device Prophylaxis: SCD's
--- NOTE | 2024-04-27 09:27 | EX.PCM.DISCH ---
Discharge Instructions Procedure Hernia Diet Discharge Diet: Light diet - advance as tolerated Activity Discharge Activity: May Not Drive (for 2-3 days or while taking narcotic pain meds.) and May Shower (with the bandage in place 1-2 days after surgery.) Lifting Restrictions: 20 pounds for 4 weeks. Additional Activity Instructions:: Climbing stairs is fine, walking is encouraged. Sitting in bed may be uncomfortable. Sitting up using your lateral muscles (sitting up sideways) is usually more comfortable. Do not drive, work heavy equipment of sign legal documents for 24 hours. If your hernia repair was an inguinal repair, you may have scrotal swelling, an ice pack and/or athletic support can provide more comfort. Pain medications may cause nausea, you should typically eat light foods as you take your pain medications. Pain medications may also cause constipation. If you have difficulty with this, discuss with your doctor. Dressing / Incision Call your doctor if your incision/area has: Continuous Slow Oozing, Sudden Increased Bleeding, Increased Pain/ Swelling, Increased Redness and Foul Smelling Discharge Call your doctor if you observe: Fever of 101 or Higher Suture Line Care: Avoid Pulling/Pushing and Avoid Pinching/Bending Remove Dressing in: 2 days (Remove clear bandages in 2 days, remove Steri-Strips in 7 to 10 days.) Additional Dressing/Incision Instructions:: Alternate ibuprofen and Tylenol for pain control, oxycodone for breakthrough pain. Resume aspirin tomorrow Follow Up Care Please Follow Up With: Adal Foy MD When: Please call to schedule 2 week follow up appointment. [phone] Test Results: Test results from this visit will be discussed in further detail at your follow-up appointment, if applicable. Discharge Plan Admission Attending Provider: Adal Foy Primary Care Provider: Jose Boyle Consulting Providers: Pawan Edwards Instructions Print Language: Belarusian Discharge Orders/Prescriptions Prescriptions: New oxycodone 5 mg tablet 5 - 10 mg PO Q6H PRN (Reason: pain) 5 Days Qty: 10 0RF No Action lisinopril 10 mg tablet 10 mg PO QDAY phentermine 37.5 mg tablet 37.5 mg PO QDAY gabapentin 300 mg capsule 300 mg PO TID zolpidem 10 mg tablet 10 mg PO QHS PRN (Reason: sleep) glipizide 10 mg tablet extended release 24hr 10 mg PO QDAY insulin glargine [Basaglar KwikPen U-100 Insulin] 100 unit/mL (3 mL) insulin pen 16 unit subcut QHS esomeprazole magnesium 40 mg capsule,delayed release(DR/EC) 40 mg PO QDAY aspirin 81 MG tablet,chewable 81 mg PO DAILY@0800 Patient Comments: Blood thinner for heart health cholecalciferol (vitamin D3) [Vitamin D3] 25 mcg (1,000 unit) tablet 25 mcg PO DAILY ascorbic acid (vitamin C) [C Complex] 500 mg tablet extended release 500 mg PO DAILY mecobalamin (vitamin B12) 1,000 mcg tablet,chewable 1,000 mcg PO DAILY Referrals / Follow Up: Jose Boyle MD [Primary Care Provider] - Disposition Disposition (needs filled in before D/C Order can be placed): Home, Self Care
--- NOTE | 2024-04-27 09:28 | PCM.POST.ANE ---
Anesthesia: Postop Eval I Current Vital Signs Temperature: 97.4 F Pulse Rate: 97 Blood Pressure: 150/84 Respiratory Rate: 20 Pulse Ox: 98 Oxygen Delivery Method: Room Air Assessment Airway patent: Yes Spontaneous unlabored respirations: Yes Mental status: Awake and Calm nausea: No Vomiting: No Anesthesia Complication: No Fluid Hydration Crystalloid volume administer (ml): 600 Total IV fluid infused: 600 Progress Note Anesthesia document: Postop Eval 1 completed: Yes
--- NOTE | 2024-04-27 09:31 | EKG12_ITS ---
Test Reason : POST OP Blood Pressure : / mmHG Vent. Rate : 066 BPM Atrial Rate : 066 BPM P-R Int : 168 ms QRS Dur : 120 ms QT Int : 428 ms P-R-T Axes : -02 -31 -07 degrees QTc Int : 448 ms Normal sinus rhythm Left axis deviation Non-specific intra-ventricular conduction delay Abnormal ECG When compared with ECG of 19-APR-2024 08:13, Premature ventricular complexes are no longer Present Confirmed by YANET WALSH, REMINGTON ([id number]), metropolitan editor ROLAND DANIELLE ([id number]) on 05/02/2024 6:20:50 AM Referred By: Adal Foy Confirmed By:REMINGTON HOLT MD
[2024-04-27 10:51] LABS: Anion Gap 6 (5-15); BUN 24 mg/dL (7-18); Chloride 110 mmol/L (98-107); Creatinine, Serum 1.33 mg/dL (0.70-1.30); EST Glomerular Filtration Rate 57 mL/min (>60); Est Glom Filt Rate - Afr Amer 69 mL/min (>60); Estimated Creatinine Clearance 67.88 ml/min; Glucose 197 mg/dL (74-106); Magnesium 1.9 mg/dL (1.6-2.6); Potassium 4.1 mmol/L (3.5-5.1); Sodium Level 140 mmol/L (136-145); Troponin-I HS 19 pg/mL (3.0-78.0)
[2024-04-27] MEDS: Acetaminophen 325 MG Tablet PO (11:03)
[2024-04-27] MEDS: oxyCODONE 5 MG Tablet PO (11:03)
--- NOTE | 2024-04-27 13:36 | POSTOPAN2_ITS ---
Anesthesia Postop Eval I Sum Postop Eval Completion status Anesthesia document: Postop Eval 1 completed: Yes Anesthesia Postop Eval I Summary Anesthesia Postop Eval I Summary: Anesthesia Postop Eval I: Assessment Summary Airway patent Yes 04/27/24 09:36 [email or web address] [email or web address] Spontaneous unlabored Yes 04/27/24 09:36 [email or web address] [email or web address].[email or web address] respirations Mental status Awake,Calm 04/27/24 09:36 [email or web address] [email or web address] nausea No 04/27/24 09:36 STOCKROOM [email or web address].[email or web address] Vomiting No 04/27/24 09:36 STOCKROOM [email or web address].[email or web address] Anesthesia Postop Eval I: Fluid Summary Crystalloid volume administer 600 04/27/24 09:36 STOCKROOM [email or web address].[email or web address] (ml) Colloids volume administered ( ml) Blood Product volume administered (ml) Total IV fluid infused 600 04/27/24 09:36 [email or web address] [email or web address].[email or web address] Anesthesia Postop Eval I: Summary Notes Anesthesia Complication No 04/27/24 09:36 STOCKROOM [email or web address].[email or web address] Anesthesia Complication Comment: Post-operative progress note Anesthesia: Postop Eval II Evaluation Mental status: Awake Pain Level: 0 nausea: No Vomiting: No
--- NOTE | 2024-04-27 13:36 | PCM.POSTANE2 ---
Anesthesia Postop Eval I Sum Postop Eval Completion status Anesthesia document: Postop Eval 1 completed: Yes Anesthesia Postop Eval I Summary Anesthesia Postop Eval I Summary: Anesthesia Postop Eval I: Assessment Summary Airway patent Yes 04/27/24 09:36 GENERAL OFFICE [email or web address].[email or web address] Spontaneous unlabored Yes 04/27/24 09:36 GENERAL OFFICE ASSOCIATE.[email or web address] respirations Mental status Awake,Calm 04/27/24 09:36 GENERAL OFFICE [email or web address].[email or web address] nausea No 04/27/24 09:36 GENERAL OFFICE ASSOCIATE.GDOTT Vomiting No 04/27/24 09:36 GENERAL OFFICE ASSOCIATE.GDOTT Anesthesia Postop Eval I: Fluid Summary Crystalloid volume administer 600 04/27/24 09:36 GENERAL OFFICE [email or web address].GDOTT (ml) Colloids volume administered ( ml) Blood Product volume administered (ml) Total IV fluid infused 600 04/27/24 09:36 GENERAL OFFICE [email or web address].GDOTT Anesthesia Postop Eval I: Summary Notes Anesthesia Complication No 04/27/24 09:36 GENERAL OFFICE [email or web address].GDOTT Anesthesia Complication Comment: Post-operative progress note Anesthesia: Postop Eval II Evaluation Mental status: Awake Pain Level: 0 nausea: No Vomiting: No
== END 2024-04-27 13:16 | disposition home or self-care (01) ==
LOC: SDC 06:02 → AC 06:02
PROVIDERS: Anesthesiology; PCP Family Medicine; Referring Provider Surgery; Visit Provider Surgery
PROC: (CPT 49650; principal; 2024-04-27 07:10)
DX: K40.90 Unilateral inguinal hernia, without obstruction or gangrene, not specified as recurrent (principal); E11.9 Type 2 diabetes mellitus without complications; I10 Essential (primary) hypertension; K21.9 Gastro-esophageal reflux disease without esophagitis; Z86.73 Personal history of transient ischemic attack (TIA), and cerebral infarction without residual deficits; Z79.82 Long term (current) use of aspirin; Z79.84 Long term (current) use of oral hypoglycemic drugs; Z79.899 Other long term (current) drug therapy
CPT/HCPCS: 49650; 00840; 36415; 80048; 82962; 83036; 83735; 84484; 85027; 93005; J7120; A4216; J2405